=== PATIENT | male | born 1945 | race Caucasian/White ===

== ENCOUNTER → 2018-03-02 | Outpatient (CLI) | payer OTHER ==
--- NOTE | 2018-03-02 12:16 | XCELERA REPORT ---
[address] [place] [facility] [address] Lower Extremity Venous Evaluation Procedure: Color flow and duplex imaging bilaterally of the veins of the lower extremities as well as the Common Femoral veins. Right Sided Venous Evaluation Normal vessel filling wall to wall, compression and augmentation as well as Colour flow down to the infrageniculate veins. Left Sided Venous Evaluation A lucent , non vascular structure, 5.1 x 2.4 x 3.9 cms in the left Popliteal fossa. Normal vessel filling wall to wall, compression and augmentation as well as Colour flow down to the infrageniculate veins. Interpretation Summary No duplex evidence of DVT or obstruction in the bilateral lower extremities. A large Popliteal cyst noted on the left side. Name: CARY AYALA Age: 72 yrs Gender: Male : 1945 Patient Status: Outpatient Patient Location: Study Date: 03/02/2018 09:23 AM Reason For Study: BLE SWELLING Ordering Physician: FERNY RIUZ Performed By: Willie Molina : FERNY RUIZ > Giacomo Rahman
== END ==
LOC: SP 08:56
PROVIDERS: ATTEND Family Medicine
DX: R60.0 Localized edema (principal)
CPT/HCPCS: 93970

== ENCOUNTER → 2018-04-01 | Outpatient (CLI) | payer OTHER ==
[2018-04-01 11:00] LABS: ABSOLUTE BASOPHILS # (AUTO) 0.1 10^3/uL (0.0-0.2); ABSOLUTE EOSINOPHILS # (AUTO) 0.4 10^3/uL (0.0-0.6); ABSOLUTE MONOCYTES (AUTO) 0.8 10^3/uL (0.1-1.4); ABSOLUTE NEUT (AUTO) 7.5 10^3/uL (1.7-8.2); BASOPHILS % (AUTO) 0.7 % (0-2); HEMATOCRIT 43.3 % (37.9-51.0); LYMPHOCYTES % (AUTO) 25.7 % (13-45); MEAN CORPUSCULAR HEMOGLOBIN 33.2 pg (27.0-33.4); MEAN CORPUSCULAR HGB CONC 34.6 g/dL (32.0-36.0); MEAN CORPUSCULAR VOLUME 96 fl (80-97); PLATELET COUNT 223 10^3/uL (150-450); RED BLOOD COUNT 4.51 10^6/uL (4.35-5.55); RED CELL DISTRIBUTION WIDTH 13.5 % (11.5-14.0); SEGMENTED NEUTROPHILS % (AUTO) 63.6 % (42-78); TOTAL CELLS COUNTED % (AUTO) 100 %; WHITE BLOOD COUNT 11.8 10^3/uL (4.0-10.5)
[2018-04-01 11:43] LABS: ERYTHROCYTE SEDIMENTATION RATE 21 mm/hr (0-20)
[2018-04-01 11:48] LABS: ALANINE AMINOTRANSFERASE 17 U/L (21-72); ALBUMIN 3.7 g/dL (3.5-5.0); ALKALINE PHOSPHATASE 69 U/L (38-126); ANION GAP 8 (5-19); ASPARTATE AMINO TRANSFERASE 18 U/L (17-59); BILIRUBIN,DIRECT 0.3 mg/dL (0.0-0.4); BLOOD UREA NITROGEN 12 mg/dL (7-20); C-REACTIVE PROTEIN 9.9 mg/L (<10.0); CALCIUM 9.2 mg/dL (8.4-10.2); CARBON DIOXIDE 31 mmol/L (22-30); CHLORIDE 99 mmol/L (98-107); GLUCOSE 135 mg/dL (75-110); POTASSIUM 4.8 mmol/L (3.6-5.0); SODIUM 137.7 mmol/L (137-145); TOTAL PROTEIN 6.5 g/dL (6.3-8.2)
== END ==
LOC: WC 10:40
PROVIDERS: ATTEND Nurse Practitioner
DX: L97.222 Non-pressure chronic ulcer of left calf with fat layer exposed (principal)
CPT/HCPCS: 36415; 80053; 83036; 85025; 85652; 86140

== ENCOUNTER → 2018-04-08 | Outpatient (CLI) | payer OTHER ==
--- NOTE | 2018-04-08 12:33 | XCELERA REPORT ---
[address] [address] Lower Extremity Arterial Evaluation Name: CARY AYALA Age: 72 yrs Gender: Male : 1945 Patient Status: Outpatient Patient Location: Study Date: 04/08/2018 08:08 AM Procedure: A color flow and duplex scan of the lower extremity arteries was performed bilaterally with velocity and waveform analysis. Reason For Study: ULCER Ordering Physician: SURESH JARA Performed By: Willie Molina Measurements and Calculations Right Left MEDICAID COLLECTION SPECIALIST PSV 108.9 108.7 cm/sec Prox PFA PSV -75.1 -64.6 cm/sec Prox Pop A PSV 78.6 69.4 cm/sec Dist MEET PSV 80.3 80.3 cm/sec Dist PRINCIPAL SECRETARY PSV 111.9 cm/sec Sadiq Pedis PSV -28.7 -157.2cm/sec Right Side Arterial Evaluation Normal velocity and triphasic waveforms noted from the Common Femoral artery to the infrageniculate vessels. Slightly low velocity in the Dorsalis Pedis 0 % stenosis. Ankle Brachial index was not done due to swelling.. Left Side Arterial Evaluation Normal velocity and triphasic waveforms noted from the Common Femoral artery to the Anterior Tibial artery. The Posterior Tibial artery not seen due to edema . 0 % stenosis. Ankle Brachial index was not done due to presence of a wound.. Interpretation Summary No hemodynamically significant lesions in the bilateral lower extremities, on duplex imaging, at rest. : SURESH JARA > Giacomo Rahman
--- NOTE | 2018-04-09 09:18 | XCELERA REPORT ---
[address] [address] Lower Extremity Venous Evaluation Procedure: A bilateral duplex scan of the lower extremity veins was performed. The evaluation included responses to compression and other maneuvers with patient in the supine and standing positions to assess venous insufficiency. Right Sided Venous Evaluation Deep venous system evaluation shows patent veins with no obstruction or significant reflux identified. Saphena Femoral junction: no reflux. Greater Saphenous vein, Proximal thigh: reflux: 2.7 seconds, 5.9 mm diameter. Greater Saphenous vein, Mid thigh: reflux: 3.4 seconds.8.5 mm diameter. Greater Saphenous vein, Distal thigh: reflux: 4.7 seconds.7.6 mm diameter. Greater Saphenous vein, Proximal below knee: reflux: 2 seconds, 7.2 mm diameter. Left Sided Venous Evaluation Significant for 6.9 x 2.9 x 4.2 cms, lucent, non vascular mass in the Popliteal fossa. Deep venous system evaluation shows patent veins with no obstruction or significant reflux identified. Saphena Femoral junction: no reflux. Femoral vein reflux: no reflux. Greater Saphenous vein, Proximal thigh: reflux: no reflux. Greater Saphenous vein, Distal thigh: reflux: no reflux. Greater Saphenous vein, Proximal below knee: reflux: no reflux. No significant Perforators identified. Interpretation Summary No duplex evidence of DVT or obstruction in the bilateral lower extremities. Superficial reflux noted on the right in a pattern which may be amenable to therapy, if indicated. A large left Popliteal (High's) cyst noted. Name: CARY AYALA Age: 72 yrs Gender: Male : 1945 Patient Status: Outpatient Patient Location: Study Date: 04/08/2018 08:39 AM Reason For Study: ULCER Ordering Physician: SURESH JARA Performed By: Willie Molina : SURESH JARA > Giacomo Rahman
== END ==
LOC: SP 07:32
PROVIDERS: ATTEND Nurse Practitioner
DX: L97.222 Non-pressure chronic ulcer of left calf with fat layer exposed (principal)
CPT/HCPCS: 93925; 93970